=== PATIENT | female | born 1995 | race Caucasian/White ===

== ENCOUNTER 2023-02-08 14:18 | Emergency (ER) | payer BC, SELFPAY ==
[2023-02-08 14:56] VITALS: BP 137/68; PULSE 77; RESP 20; TEMP 36.8; O2SAT 100; BMI 27.4
[2023-02-08 16:27] VITALS: BP 132/94; PULSE 73
--- NOTE | 2023-02-08 16:31 | ED.NURSE ---
Pt wanted to have her BP checked. stated she did not want to keep waiting. Stated she just wanted to know if there was something in there (retained tampon) or if she was going to be admitted. Explained to pt that there was not rooms available at this time and that she was not appropriate to be seen in a hallway bed. Pt stated she no longer wants to wait and signed a refusal
== END 2023-02-08 16:40 | disposition home or self-care (01) ==
LOC: ED 16:35
DX: Z53.21 Procedure and treatment not carried out due to patient leaving prior to being seen by health care provider (principal)

== ENCOUNTER 2025-06-11 17:27 | Emergency (ER) | payer BC, SELFPAY ==
--- OUTSIDE RECORDS SUMMARY | 2025-05-10 19:20 | XMS_ITS | Encounter Summary ---
Author Organization [facility] Address [address], [place] [address] Care Team Providers Care Medical Translator Name Role Phone Hayley Soto MD Primary Care Provider [phone] Reason for Visit * Reason Comments Suture/Staple Removal Encounter Details Date Type Department Care Team ([facility] st Contact Info) Description 05/10/2025 7:20 PM CDT Office Visit [place] [facility] [facility] [address] [place] [address] Pipo Aparicio, PULP HOUSE SUPERVISOR, CIGARETTE STAMPER [address] [place] [address] Encounter for staple removal; Visit for wound check Social History Tobacco Use Types Packs/Day Years Used Date Smoking Tobacco: Former Cigarettes 1 12.7 0 11/22/2006 - 08/22/2019 Smokeless Tobacco: Never Comments:Smoking History Pac ks/day: Alcohol Use Standard Drinks/Week Comments Not Currently 3 (1 standard drink = 0.6 oz pur e alcohol) SOCIAL PHQ-2 Answer Date Recorded PHQ-2 Score 2 07/20/2023 Depression Answer Date Recor ded Last EPDS Total Score 0 12/25/2024 Last EPDS Self Harm Result Not on file 12/25 Comments No Sex and Gender Information Value Date Recorded Sex Assigned at Not on file Legal Sex Female 12:46 AM CDT Gender Identity Not on file Sexual Orientation Not on file Occupation Industry Job Start Date Job End Date [employer] Claims Not on file Not on file Not on file documented as of this encounter Last Filed Vital Signs Vital Sign Reading Time Taken Comments Blood Pressure 118/80 05/10/2025 7:00 PM CDT Pulse 71 05/10/2025 7:00 PM CDT Temperature - - Respiratory Rate 18 05/10/2025 7:00 PM CDT Oxygen Saturation 100% 05/10/2025 7:00 PM CDT Inhaled Oxygen Concentration - - Weight - - Height - - Body Mass Index - - documented in this encounter Patient Instructions * Attachments The following attachments cannot be sent through Care Everywhere. * Stitches and Amy Removal: General Info (Afghan) * IBS (Irritable Bowel Syndrome) Diet (Afghan) documented in this encounter Progress Notes * Pipo Aparicio, PULP HOUSE SUPERVISOR, CIGARETTE STAMPER - 05/10/2025 7:20 PM CDT [facility] Patient: Tori Poole Date of : 1995 (30 y.o.) Subjective Chief Complaint: Chief Complaint Patient presents with Suture/Staple Removal History of Present Illness: Tori Poole is a 30 y.o.female presents for evaluation of staple removal. Had amy placed 8 days ago while in [place]. Needs to have sutures removal. Feels that the wound has healed well. No signs of infection. No other concerns or complaints. Past Medical History: Patient Active Problem List Diagnosis History of anxiety Family history of other congenital malformations, deformations and chromosomal abnormalities Iron deficiency anemia due to chronic blood loss Menorrhagia with regular cycle Irregular menstruation, unspecified Adverse Drug Reactions: Patient has no known allergies. Medications: clindamycin and tretinoin Family History: Family History Problem Relation Name Age of Onset Osteoarthritis Father Diabetes Father Diabetes Mother Thyroid Disorder Mother Other (pre diabetes) Mother Fibromyalgia Sister Other (connective tissue) Sister Thyroid Disorder Maternal Aunt 4 Anesthesia Reaction Negative Family History Bleeding Disorder Negative Family History Social History: Social History Tobacco Use Smoking status: Former Current packs/day: 0.00 Average packs/day: 1 pack/day for 12.7 years (12.7 ttl pk-yrs) Types: Cigarettes Start date: 11/22/2006 Quit date: 08/22/2019 Years since quittin.7 Smokeless tobacco: Never Tobacco comments: Smoking History Packs/day: Vaping Use Vaping status: Never Used Substance Use Topics Alcohol use: Not Currently Alcohol/week: 3.0 standard drinks of alcohol Types: 3 Standard drinks or equivalent per week Comment: SOCIAL Drug use: No Review of Systems: All systems negative unless noted in HPI Objective Physical Exam: Vital Signs: BP 118/80 (BP Location: Right Arm, BP Cuff Size: Regular - Long) Pulse 71 Resp 18 LMP 01/21/2024 (Approximate) Comment: FEBRUARY 2024 SpO2 100% General: Alert,No obviousdiscomfort, well kept HENT: Normal voice, No lymphadenopathy Eyes: The pupils are equal, No scleral icterus Neck: Normal range of motion CV: Normal Pulses Resp: Non-labored, No cough MS: Normal muscular tone, moves all extremities Skin: 2 amy (s) placed over the top of left scalp just off of midline. No sign of wound dehiscence or infection. Neuro: Speech is normal and fluent Psych: Awake. Alert. Normal affect. Appropriate interactions. Good eye contact Procedure: Suture/staple removal. 2 amy (s) were removed without difficulty. Patient tolerated procedure well. Postprocedure wound evaluation shows no signs of dehiscence. Assessment Tori Poole is a 30 y.o. female presents for evaluation suture/staple removal. Wound appeared to be healed well. No sign of dehiscence or secondary infection. Sutures removed without incident and wound care protocols were discussed. Patient appears to be safe and appropriate for outpatient follow-up and is discharged home. Impression: 1. Encounter for staple removal 2. Visit for wound check Plan amy (s) were removed without problem. Avoid significant sun exposure for 6 to 12 months to reduce scarring. Monitor for infection such as fever, chills, redness, pus, discharge. Avoid heavy stress on skin that was repaired, as full strength takes several weeks to achieve.The patient was discharged ambulatory and in stable condition. Return to clinic if questions develop. Patient Discharge Medications & Instructions: Medications Prescribed this Visit None Discharge Instructions None Discharge References/Attachments Stitches and Amy Removal: General Info (Afghan) IBS (Irritable Bowel Syndrome) Diet (Afghan) Pipo Aparicio APRN, LUIS documented in this encounter Nursing Notes * Rodolfo Fuentes LPN - 05/10/2025 7:20 PM CDT Tori Poole is a 30 y.o.female presents to the Urgent Care for No chief complaint on file. . Date sutures were placed: 05/02/25 [facility]. Facility where suturing was performed: [place] of [place]. Location of Sutures: scalp Wound Appearance: Well healed without signs of inflammation or infection. documented in this encounter Plan of Treatment Upcoming Encounters Date Type Department Care Team ([facility]) Description 07/03/2025 1:30 PM CDT Appointment [place] [address] [facility] [address] [place] [address] Lizzy Ruvalcaba MD [address] [place], [place] [address] documented as of this encounter Visit Diagnoses Diagnosis Encounter for staple removal Encounter for removal of sutures Visit for wound check Encounter for other specified aftercare documented in this encounter Care Teams Medical Translator Relationship Specialty Start Date End Date Hayley Soto MD [address] [place], [place] [id number] PCP - General 07/23/16 documented as of this encounter
--- OUTSIDE RECORDS SUMMARY | 2025-06-11 17:30 | XMS_ITS | Encounter Summary ---
Author Organization [facility] Address [address] [place] [id number] Care Team Providers Care Silk Worker Name Role Phone Sisi Monge DO Primary Care Provider Unavailable Encounter Details Date Type Department Care Team (Late st Contact Info) Description 04/29/2021 Orders Only [facility] [address] [place] [address] Sisi Monge DO Pre-operative laboratory examination (Primary Dx) Social History Tobacco Use Types Packs/Day Years Used Date Smoking Tobacco: Former Cigarettes 1 - 09/01/2019 Smokeless Tobacco: Never Alcohol Use Standard Drinks/Week Comments Not Currently 0 (1 standard drink = 0.6 oz pur e alcohol) occ 1drink/week Comments Yes Sex and Gender Information Value Date Recorded Sex Assigned at Not on file Legal Sex Female 4:54 AM TOWEL WEAVER Gender Identity Not on file Sexual Orientation Not on file COVID-19 Exposure Response Date Recorded In the last month, have you been in contact with someone who was confirmed or suspected to have Coronavirus / COVID-19? No / Unsure 05/01/2021 6:58 AM CDT documented as of this encounter Plan of Treatment Not on file documented as of this encounter Results * ABO/Rh type and screen (05/01/2021 7:15 AM CDT) ABO O 05/01/2021 7:57 AM CDT [facility] RH(D) Pos [facility] Antibody Screen Neg 05/01/2021 7:57 AM CDT [facility] Test Valid Only At [facility] 05/01/2021 7:24 AM CDT [facility] Specimen Expires 05/04/2021 05/01/2021 7:24 AM CDT [facility] Blood 05/01/2021 7:15 AM CDT 05/01/2021 7:19 AM CDT us Sisi Monge DO LAB - BLOOD BANK TEST O RDER Edited Result - Final [facility] [address] [place], [place] [address] [phone] * Treponema Abs w Reflex to RPR and Titer (05/01/2021 7:04 AM CDT) Treponema Antibodies Nonreactive NR^Nonrea ctive 05/01/2021 4:13 PM CDT [facility] Comment: Methodology Change: Test performed on the [place] Liaison XL by Treponema pallidum Total Antibodies Assay as of 02.06.2020. Blood 05/01/2021 7:04 AM CDT 05/01/2021 7:18 AM CDT us Sisi Monge DO LAB - BLOOD ORDERABLES Final Result [facility] [address] [place] [address] * (ABNORMAL) Hemoglobin (05/01/2021 7:04 AM CDT) Hemoglobin 10.8(L) 11.7 - 15.7 g/dL 05/01/2021 7:39 AM CDT [facility] Blood 05/01/2021 7:04 AM CDT 05/01/2021 7:18 AM CDT us Sisi Monge DO LAB - BLOOD ORDERABLES Final Result [facility] [address] [place] [address], [facility] [phone] documented in this encounter Visit Diagnoses Diagnosis Pre-operative laboratory examination- Primary Pre-procedural laboratory examination documented in this encounter Care Teams Silk Worker Relationship Specialty Start Date End Date Sisi Monge DO PCP - General provisioning analyst 02/21/21 documented as of this encounter
--- OUTSIDE RECORDS SUMMARY | 2025-06-11 17:30 | XMS_ITS | Clinical Summary ---
Author Organization [facility] Address [address] [place] [address] Care Team Providers Care Hr Generalist Name Role Phone Sisi Monge DO Primary Care Provider Unavailable Allergies No known active allergies Medications acetaminophen (TYLENOL) 325 MG tabletIndicatio ns:S/P Take 3 tablets (975 mg) by mouth every 6 hours 1 Active bisacodyl (DULCOLAX) 10 MG suppositoryIndi cations:S/P Place 1 suppository (10 mg) rectally daily as needed for constipation 1 Active ferrous sulfate (FEROSUL) 325 (65 Fe) MG tabletIndicatio ns:S/P Take 1 tablet (325 mg) by mouth daily 60 tablet 1 Active hydrocortisone 2.5 % creamIndication s:S/P Place rectally 3 times daily as needed (hemorrhoids) 1 Active ibuprofen (ADVIL/MOTRIN) 800 MG tabletIndicatio ns:S/P Take 1 tablet (800 mg) by mouth every 6 hours 60 tablet 1 Active lanolin ointmentIndicat ions:S/P Apply topically every hour as needed for dry skin (soreness) 1 Active oxyCODONE (ROXICODONE) 5 MG tabletIndicatio ns:S/P Take 1 tablet (5 mg) by mouth every 4 hours as needed for moderate to severe pain 6 tablet 1 Active senna-docusate (SENOKOT-S/MICHELLE COLACE) 8.6-50 MG tabletIndicatio ns:S/P Take 1 tablet by mouth 2 times daily 60 tablet 1 Active dicyclomine (BENTYL) 20 MG tablet Take 1 tablet (20 mg) by mouth 4 times daily as needed (abdominal pain) 20 tablet 3 Active cyclobenzaprine (FLEXERIL) 5 MG tablet Take 2 tablets (10 mg) by mouth 3 times daily as needed for muscle spasms. 14 tablet 5 Active Active Problems Problem Noted Date Diagnosed Date S/P 05/02/2021 Encounter for triage in patient 021 Family History Medical History Relation Comments Diabetes Father Hyperlipidemia Father Hypertension Father Diabetes Mother Relation Status Comments Father Mother Social History Tobacco Use Types Packs/Day Years Used Date Smoking Tobacco: Former Cigarettes 1 - 09/01/2019 Smokeless Tobacco: Never Alcohol Use Standard Drinks/Week Comments Not Currently 0 (1 standard drink = 0.6 oz pur e alcohol) occ 1drink/week [place] Depression Scale Answer Date Recorded [place] Depression Score 2 05/04/2021 Last EPDS Self Harm Result Not on file 05/04 Adolescent Education Answer Date Record ed Getting School Help Needed Not on file 08/20 Comments No Sex and Gender Information Value Date Recorded Sex Assigned at Not on file Legal Sex Female 4:54 AM E COMMERCE ANALYST Gender Identity Not on file Sexual Orientation Not on file Last Filed Vital Signs Vital Sign Reading Time Taken Comments Blood Pressure 129/83 01/28/2025 7:19 AM CDT Pulse 74 01/28/2025 7:19 AM CDT Temperature 36.1 C (96.9 F) 01/28/2025 7:19 AM CDT Respiratory Rate 18 01/28/2025 7:19 AM CDT Oxygen Saturation 100% 01/28/2025 7:19 AM CDT Inhaled Oxygen Concentration - - Weight 70.2 kg (154 lb 12.2 oz) 01/28/2025 7:19 AM CDT Height 165.7 cm (5' 5.25) 01/28/2025 7:19 AM CD T Body Mass Index 25.56 01/28/2025 7:19 AM CDT Plan of Treatment Health Maintenance Due Date Last Done Comments ADVANCE CARE PLANNING 1995 ANNUAL REVIEW OF HM ORDERS 1995 COVID-19 VACCINE ( - season) 2024 PHQ-2 (once per calendar year) 2024 YEARLY PREVENTIVE VISIT 01/31/2025 02/01/2024, 12/16 INFLUENZA VACCINE (#1) 2025 09/27/2020 HPV TEST 02/01/2029 02/02/2024 PAP 02/01/2029 02/02/2024, 08/20/2016 DTAP/TDAP/TD VACCINE (9 - Td or Tdap) 02/05/2031 02/05/2021, 06/26/2005, 06/26/2005, Additional history exists ZOSTER VACCINE (1 of 2) 2043 HEPATITIS B VACCINE Completed 01/13/2006, 01/13/2006, 07/30/2005, Additional history exists HPV VACCINE Completed 04/05/2007, 09/23, 12/21/2005 MENINGITIS VACCINE Completed 12/16/2009 HIV SCREENING Completed 09/27/2020, 04/2020, 08/20/2016 HEPATITIS C SCREENING Completed 02/05/2021 PNEUMOCOCCAL VACCINE: PEDIATRICS (0 to 5 YEARS) AND AT-RISK PATIENTS (6 to 49 YEARS) Aged Out No longer eligible based on patient's age to complete this topic Procedures Procedure Name Priority Date/Time Associated Diagnosis Comments GYNECOLOGIC CYTOLOGY Routine 02/02/2024 8:12 AM CDT Encounter for gynecological examination (general) (routine) without abnormal findings HPV HIGH RISK TYPES DNA CERVICAL Routine 02/02/2024 8:12 AM CDT Encounter for gynecological examination (general) (routine) without abnormal findings HIV ANTIGEN ANTIBODY COMBO Routine 09/27/2020 from Last 3 Months or Most Recently Relevant to Health Maintenance Results * Gynecologic Cytology (PAP) (02/02/2024 8:12 AM CDT) Interpretation Negative for Intraepithelial Lesion or Malignancy (NILM) 02/04/2024 3:22 PM CDT [facility] at 1522 CDT Comment Papanicolaou Test Limitations: Cervical cytology is a screening test with limited sensitivity, and regular screening is critical for cancer prevention. Pap tests are primarily effective for the diagnosis/prevent ion of squamous cell carcinoma, not adenocarcinoma or other cancers. 02/04/2024 3:22 PM CDT [facility] Specimen Adequacy Satisfactory for evaluation, endocervical/davey sformation zone component present 02/04/2024 3:22 PM CDT [facility] Clinical Information none 02/04/2024 3:22 PM CDT [facility] LMP/Menopause Date 01/16/2024 02/04/2024 3:22 PM CDT [facility] Reflex Testing Yes regardless of result 02/04/2024 3:22 PM CDT [facility] Previous Abnormal? No 02/04/2024 3:22 PM CDT [facility] Previous Abnormal Diagnosis 11/22/2020 02/04/2024 3:22 PM CDT [facility] Performing Labs The technical component of this testing was completed at [facility] 02/04/2024 3:22 PM CDT [facility] Brushing CERVIX UTERI STRUCTURE / Unknown 02/02/2024 8:12 AM CDT 02/02/2024 1:40 PM CDT Delvin ROSARIO - RAUL REN Final Result [facility] [address] [facility], [address] [place] [phone], [facility] * (ABNORMAL) HPV High Risk Types DNA Cervical (02/02/2024 8:12 AM CDT) Other HR HPV Positive(A) Negative 02/08/2024 4:08 PM CDT [facility] HPV16 DNA Negative Negative 02/08/2024 4:08 PM CDT [facility] HPV18 DNA Negative Negative 02/08/2024 4:08 PM CDT [facility] FINAL DIAGNOSIS This patient's sample is positive for other HR HPV DNA (types 31, 33, 35, 39, 45, 51, 52, 56, 58, 59, 66 or 68), not HPV 16 or HPV 18 DNA. This result requires clinical correlation with concurrent cytology findings. This test was developed and its performance characteristics determined by the [facility], [facility]. It has not been cleared or approved by the FDA. The laboratory is regulated under CLIA as qualified to perform high-complexity testing. This test is used for clinical purposes. It should not be regarded as investigational or for research. METHODOLOGY: The [employer] 4800 system uses automated extraction, simultaneous amplification of HPV (L1 region) and beta-globin, followed by real time detection of fluorescent labeled HPV and beta globin using specific oligonucleotide probes. The test specifically identifies types HPV 16 DNA and HPV 18 DNA while concurrently detecting the rest of the high risk types (31, 33, 35, 39, 45, 51, 52, 56, 58, 59, 66 or 68). COMMENTS: This test is not intended for use as a screening device for woman under age 30 with normal cervical cytology. Results should be correlated with cytologic and histologic findings. Close clinical followup is recommended. 02/08/2024 4:08 PM CDT [facility] Brushing CERVIX UTERI STRUCTURE / Unknown Non-blood Collection / Unknown 02/02/2024 8:12 AM CDT 02/07/2024 8:10 AM CDT Delvin Callaway MD LAB - BLOOD ORDERABLES Final Result [facility] [address] [facility], [address] [place] [phone], [facility] * HIV Antigen Antibody Combo (09/27/2020) HIV Antigen Antibody Combo Negative Blood us Patient Reported LAB - BLOOD ORDERABLES Final Re sult from Last 3 Months or Most Recently Relevant to Health Maintenance Insurance BCBS OUT OF STATE BCBS OUT OF STATE Advance Directives For more information, please contact: [phone] * Full Code (Latest Code Status on File) Date Activated Date Inactivated Comments 05/03/2021 9:26 AM 05/05/2021 5:46 PM Question Answer Comments Code status determined by: Discussion with patie nt/ legal decision maker * Full Code Date Activated Date Inactivated Comments 05/03/2021 7:20 AM 05/03/2021 9:26 AM All basic an d advanced life-sustaining interventions are performed as appropriate Question Answer Comments Code status determined by: Discussion with patie nt/ legal decision maker Care Teams Hr Generalist Relationship Specialty Start Date End Date Sisi Monge DO PCP - General mattress and boxsprings supervisor 02/21/21
--- OUTSIDE RECORDS SUMMARY | 2025-06-11 17:30 | XMS_ITS | Clinical Summary ---
Author Organization [facility] Address [address] [place] [address] Care Team Providers Care Wood Carving Machine Operator Name Role Phone Hayley Soto MD Primary Care Provider + [phone] Source Comments You are receiving this document as you are listed as the primary care provider,follow-up provider, or the patient has been referred to you for consultation.This is in compliance with the Medicare and[facility] EHR Incentive Program,which states Providers who transition their patient to another setting of careor provider of care or refers their patient to another provider of care shouldprovide summary care record for each transition of care or referral. [employer] Allergies No known active allergies Medications clindamycin (CLEOCIN T) 1 % lotion Apply topically daily. 60 mL 11 4 Active Additional Information Patient not taking.Reported on 05/10/2025 tretinoin (RETIN-A) 0.05 % cream Apply topically every evening. 45 g 11 4 Active Additional Information Patient not taking.Reported on 05/10/2025 Active Problems Problem Noted Date Diagnosed Date Iron deficiency anemia due to chronic blood loss 10/05/2023 Menorrhagia with regular cycle 10/05/2023 History of anxiety 09/29/2020 Family history of other vipul enital malformations, deformations and chromosomal abnormalities 09/29/2020 Irregular menstruation, unspecified Resolved Problems Problem Noted Date Diagnosed Date Resolved Date S/P 05/02/2021 11/25/2021 Encounter for triage in patient 02/03/2021 11/25/2021 Supervision of high risk pre gnancy in third trimester 11/08/2020 11/25/2021 History of miscarriage 09/29/202011/25 Previous delivery, antepartum condition or complication 09/29/2020 11/25/2021 Anxiety state 05/14/2010 10/22/2017 Overview (07/14/2017): Anxiety NOS Asthma 04/07/2010 06/14/2017 Overview (07/14/2017): Asthma NOS Encounters Date Type Department Care Team Description 05/10/2025 7:20 PM CDT Office Visit [facility] [address] [place] [address] Pipo Aparicio, ELECTRICAL/INSTRUMENT TECHNICIAN, BLOOD TYPER Encounter for staple removal; Visit for wound check from Last 3 Months Immunizations Immunization Administration Dates Next Due 4vHPV (Gardasil) 04/05/2007,10/20/2006, 6 DTP 10/28/1994, 3,1993,1992 DTaP 06/26/2005,02/14/1998 HepB Ped/Adol (0-18 yrs) 01/13/2006,06/2005,06/26/2005,1992 HepB, Unspecified Formulation 1993, 993 Hib, Unspecified Formulation 07/22/1994,08/14/19 93 Influenza IIV4 (Quadrivalent ) 0.5mL (82194) 09/27/2020 MCV4 (Menactra) 12/16/2009 MMR 06/26/2005,07/22/1994 Polio, Unspecified Formulation 8,10/28/1994,1993,1992 Tdap 02/05/2021,06/26/2005 Family History Medical History Relation Name Comments Diabetes Father Osteoarthritis Father Diabetes Mother Thyroid Disorder Mother pre diabetes Mother Thyroid Disorder Maternal Aunt 4 Fibromyalgia Sister 1 connective tissue Sister 2 Anesthesia Reaction Negative Family History Bleeding Disorder Negative Family History Relation Name Status Comments Father Mother Daughter 1 peighton Alive Daughter 2 manjeet Alive Maternal Aunt Paternal Grandfather (Age 60) Paternal Grandmother (Age 60) Sister 1 Sister 2 Social History Tobacco Use Types Packs/Day Years Used Date Smoking Tobacco: Former Cigarettes 1 12.7 0 11/22/2006 - 08/22/2019 Smokeless Tobacco: Never Tobacco Cessation:Counseling Given: Not Answered Comments:Smoking History Packs/day: Alcohol Use Standard Drinks/Week Comments Not Currently [...] file Not on file Not on file Last Filed Vital Signs Vital Sign Reading Time Taken Comments Blood Pressure 118/80 05/10/2025 7:00 PM CDT Pulse 71 05/10/2025 7:00 PM CDT Temperature 37.1 C (98.7 F) 08/12/2023 10:10 AM CDT Respiratory Rate 18 05/10/2025 7:00 PM CDT Oxygen Saturation 100% 05/10/2025 7:0 0 PM CDT Inhaled Oxygen Concentration - - Weight 69.9 kg (154 lb 1.6 oz) 05/04/20 24 11:39 AM CDT Height 157.5 cm (5' 2) 11/25/2021 7:18 AM WATER RESOURCE ENGINEERING SPECIALIST pt reported Body Mass Index 28.19 11/25/2021 7:18 AM WATER RESOURCE ENGINEERING SPECIALIST Plan of Treatment Upcoming Encounters Date Type Department Care Team (Late st Contact Info) Description 07/03/2025 1:30 PM CDT Appointment [id number] [address] [place] [address] Lizzy Ruvalcaba MD [address] [place] [address] Health Maintenance Due Date Last Done Comments Adult Preventive Visit 12/16/2020 12/16/2018 COVID-19 Vaccine ( season) 2024 Influenza Vaccine (#1) 2025 09/27/2020 Cervical Cancer Screening 02/02/20272023 (Completed), 12/16/2018, 04/23/2011, Additional history exists DTaP/Tdap/Td Vaccine (9 - Tdap) 02/05/2031 02/05/2021, 06/26/2005, 06/26/2005, Additional history exists Zoster/Shingles Vaccine (1 of 2) 2043 Hib Vaccine Completed 07/22/1994, 1993 IPV (Polio) Vaccine Completed 02/14/1998, 10/28/1994, 1993, Additional history exists HepB Vaccine Completed 01/13/2006, 06/2005, 06/26/2005, Additional history exists HPV Vaccine Completed 04/05/2007, 09/23, 12/21/2005 MCV4 Vaccine Completed 12/16/2009 HIV Screening (Preventive Services) Completed 09/27/2020, 01/12/2019, 08/20/2016, Additional history exists Hep C Screening (Preventive Services) Completed 02/05/2021, 01/12/2019 HepA Vaccine Aged Out No longer eligi ble based on patient's age to complete this topic Meningococcal B Vaccine Aged Out No l onger eligible based on patient's age to complete this topic Pneumococcal Vaccine Aged Out No long er eligible based on patient's age to complete this topic Procedures Procedure Name Priority Date/Time Associated Diagnosis Comments HEPATITIS C ANTIBODY, WITH REFLEX (ANTI-HCV) Routine 02/05/2021 8:35 AM CDT Previous section complicating HIV 1/2 AG/AB 4TH GEN Routine 09/27/2020 11:49 AM WATER RESOURCE ENGINEERING SPECIALIST Screening examination for venereal disease ANATOMICAL PATH LIQUID BASED Routine 12/16/2018 1:48 PM WATER RESOURCE ENGINEERING SPECIALIST from Last 3 Months or Most Recently Relevant to Health Maintenance Results * Hepatitis C Antibody, with Reflex (02/05/2021 8:35 AM CDT) Hepatitis C Antibody Negative (Non Reactive) Negative (Non Reactive) 02/05/2021 1:12 PM CDT [facility] Comment:Antibodies to HCV no t detected. Does not exclude the possiblity of exposure to HCV. Blood Venipuncture / Unknown 02/05/2021 8:35 AM CDT 02/05/2021 8:35 AM CDT us Sisi Dennys Monge DO LAB_1 Final Resu lt Performing Organization Address City/[facility] Co de Phone Number [facility] [address] * HIV 1/2 Ag/Ab 4th Generation (09/27/2020 11:49 AM WATER RESOURCE ENGINEERING SPECIALIST) Pathologist [facility] [place] HIV 1/2 Antigen/Antib whitley (4th generation) Negative (Non Reactive) Negative (Non Reactive) 09/27/2020 3:57 PM WATER RESOURCE ENGINEERING SPECIALIST [facility] Comment:HIV-1 p24 Antigen an d HIV-1/HIV-2 Antibody not detected Blood Venipuncture / Unknown 09/27/2020 11:49 AM WATER RESOURCE ENGINEERING SPECIALIST 09/27/2020 11:49 AM WATER RESOURCE ENGINEERING SPECIALIST us Kasie Noyola Sean ELECTRICAL/INSTRUMENT TECHNICIAN, BLOOD TYPER LAB_1 Final R esult Performing Organization Address City/[facility] Co de Phone Number [facility] [address] * Pap Smear (12/16/2018 1:48 PM WATER RESOURCE ENGINEERING SPECIALIST) 12/16/2018 1:48 PM WATER RESOURCE ENGINEERING SPECIALIST Narrative PN SOFT - 12/29/2018 12:36 PM WATER RESOURCE ENGINEERING SPECIALIST FINAL GYNECOLOGICAL CYTOLOGY REPORT Pathology #: [id number] Date Obtained: 12/16/2018 Date Received: 12/19/2018 INTERPRETATION/RESULTS: Negative for Intraepithelial Lesion or Malignancy. SPECIMEN ADEQUACY: Satisfactory for Evaluation. Endocervical cells/transformation zone component present. Verified on 12/29/2018 by BRAD ISAACS MD (electronic signature) CLINICAL NOTES: Abnormal bleeding: No, LMP: 12/12/2018, Menstrual status: None Apply, Current form of therapy: None apply LIQUID BASED PAP SMEAR SPECIMEN TYPE: ROUTINE CERVICAL PAP TEST PLEASE NOTE: The pap smear is a screening test designed to aid in the detection of cervical cancer and its precursor lesions. It is not a diagnostic procedure and should not be used as the sole means of detecting cervical cancer. Both false-positive and false-negative reports may occur. Performed at [facility] [place] [facility], [facility] [place] [address] Hayley Soto MD LAB_1 Final Result PN SOFT [facility] [place], [place] [id number] from Last 3 Months or Most Recently Relevant to Health Maintenance Insurance [facility] OUT OF STATE [facility] OUT OF STATE [place] [id number] Care Teams Wood Carving Machine Operator Relationship Specialty Start Date End Date Hayley Soto MD [address] [facility] [place] [id number] PCP - General 07/23/16
--- OUTSIDE RECORDS SUMMARY | 2025-06-11 17:30 | XMS_ITS | Encounter Summary ---
Author Organization [facility] Address [address] [place] [address] Care Team Providers Care Claims Examiner Name Role Phone Hayley Soto MD Primary Care Provider [phone] Sisi Monge DO Primary Care Provider Unavailable Encounter Details Date Type Department Care Team (Late st Contact Info) Description 07/02/2020 External Order Results [facility] [address] [place] [address] Outside, Provider Social History Tobacco Use Types Packs/Day Years Used Date Smoking Tobacco: Former Cigarettes 1 - 09/01/2019 Smokeless Tobacco: Never Alcohol Use Standard Drinks/Week Comments Yes 0 (1 standard drink = 0.6 oz pur e alcohol) occ 1drink/week Comments No Sex and Gender Information Value Date Recorded Sex Assigned at Not on file Legal Sex Female 4:54 AM LAPEL BASTER Gender Identity Not on file Sexual Orientation Not on file COVID-19 Exposure Response Date Recorded In the last month, have you been in contact with someone who was confirmed or suspected to have Coronavirus / COVID-19? No / Unsure 07/03/2020 5:31 PM CDT documented as of this encounter Plan of Treatment Not on file documented as of this encounter Procedures Procedure Name Priority Date/Time Associated Diagnosis Comments COVID-19 VIRUS (CORONAVIRUS) BY PCR (EXTERNAL RESULT) Routine 07/02/2020 8:23 AM CDT documented in this encounter Results * COVID-19 Virus (Coronavirus) by PCR (External Result) (07/02/2020 8:23 AM CDT) COVID-19 Virus by PCR (External Result) Not Detected Not Detected [facility] 07/02/2020 8:23 AM CDT Narrative KARIME PFT - 07/03/2020 9:34 AM CDT Verified by Letty Ellis on 07/03/2020. us Patient Reported LABORATORY Edited Result - Final KARIME PFT [facility] [address] [phone] documented in this encounter Visit Diagnoses Not on filedocumented in this encounter Care Teams Claims Examiner Relationship Specialty Start Date End Date Hayley Soto MD PCP - General Family Practice 10/22/17 02/20/21 Sisi Monge DO PCP - General warehouser 02/21/21 documented as of this encounter
--- OUTSIDE RECORDS SUMMARY | 2025-06-11 17:30 | XMS_ITS | Data Portability ---
Author Organization [facility] INSPECTOR OPTICAL INSTRUMENT, [id number] Address [address] [place] [phone] Assessment No assessment recorded. Plan of Treatment Reminders Order Date Submit Date Provider Last Modified By Organization Details Last Modified Time Details Appointments None recorded. Lab None recorded. Referral None recorded. Procedures None recorded. Surgeries total laparoscopi c hysterectom y, robotic assisted (SURG) 2023 024 Formerly [facility] [place], [address] [place] [address] , [address], [place], [address], 4 11:09:33 Imaging None recorded. Medication Orders None recorded. Patient TargetsNo targets recorded. Patient InstructionsNo instructions recorded. Reason for Referral None Reported. Results Created Date Observation Date Name Description Value Unit Range Abnormal Flag Note LastModifiedBy Organization Detail LastModifiedTime 02/02/20 24 02/02/2024 GYNEC OLOGI C CYTOL OGY (PAP SMEAR ) gynecologic cytology SEE RESULT S BELOW SPECI MEN SOURC E [place] ing Cervi x BKR LAB AP GYROSCOPE TECHNICIAN INTER PRETA TION: Negat daylin for Intra epith elial Lesio n or Bettina norris (NILM ) Elect aleta moffett randal d by Remy Galarza CT (ASCP ) on 2023 at 3:22 PM Path repor [email or web address] ments Imp Spec: Papan icola ou Test Limit ation s: Cervi jeana cytol ogy is a scree fauzia test with limit ed sensi tivit y, and regul ar scree fauzia is criti jeana for cance r preve ntion . Pap tests are prima rily effec tive for the diagn osis/ preve ntion of squam ous cell carci noma, not adeno carci noma or other cance rs. BKR LAB AP GYROSCOPE TECHNICIAN ADEQU ACY: Satis facto ry for evalu ation , endoc ervic al/tr ansfo rmati on zone compo nent prese nt Path repor t.rel evant Hx Spec: none BKR LAB AP LMP: 2023 BKR LAB AP HPV REFLE X: Yes regar dless of resul t BKR LAB AP PREVI OUS ABNOR MAL: No BKR LAB AP PREVI OUS ABNL DX: 021 Path repor [email or web address].com ments Imp Spec: The techn ical compo nent of this testi ng was compl eted at [facility] [facility] Not Available [address], [place], [address], 02/08/2024 17:10:35 02/02/20 24 02/02/2024 HPV HIGH RISK TYPES DNA CERVI JEANA other HR HPV Positi ve negati ve abnormal Not Available [address], [place], [address], 02/08/2024 17:10:41 02/02/20 24 02/02/2024 HPV HIGH RISK TYPES DNA CERVI JEANA HPV16 DNA Negati ve negati ve Not Available [address], [place], [address], 02/08/2024 17:10:41 02/02/20 24 02/02/2024 HPV HIGH RISK TYPES DNA CERVI JEANA HPV18 DNA Negati ve negati ve Not Available [address], [place], [address], 02/08/2024 17:10:41 02/02/20 24 02/02/2024 HPV HIGH RISK TYPES DNA CERVI JEANA final diagnosis See note below This patie nt's sampl e is posit daylin for other HR HPV DNA (type s 31, 33, 35, 39, 45, 51, 52, 56, 58, 59, 66 or 68), not HPV 16 or HPV 18 DNA. This resul t requi res clini jeana corre latio n with concu rrent cytol ogy findi ngs. This test was devel oped and its perfo rmanc e glo cteri stics deter mined by [facility] [place] [facility] . It has not been clear ed or appro jose by the FDA. The labor atory is regul ated under CLIA as quali fied to perfo rm high- compl exity testi ng. This test is used for clini jeana purpo ses. It shoul d not be regar ded as inves tigat ional or for resea rch. METHO DOLOG Y: The [employer] 4800 syste m uses autom ated extra ction , simul taneo us ampli ficat ion of HPV (L1 regio n) and beta- globi n, follo wed by real time detec tion of fluor escen t label ed HPV and beta globi n using speci fic oligo nucle otide probe s. The test speci fical ly ident ifies types HPV 16 DNA and HPV 18 DNA while concu rrent ly detec ting the rest of the high risk types (31, 33, 35, 39, 45, 51, 52, 56, 58, 59, 66 or 68). COMME NTS: This test is not inten ded for use as a scree fauzia devic e for woman under age 30 with danielle l cervi jeana cytol ogy. Resul ts shoul d be corre lated with cytol ogic and histo logic findi ngs. Close clini jeana follo wup is recom josephine d. Not Available [address], [place], [address], 02/08/2024 17:10:41 Result Notes None recorded. Problems Name Problem SNOMED Code Status Onset Date Resolution Date Notes Provider Name and Address Organization Details Recorded Time [facility] 322514141 Active 024 Hussein Griffith (TERMED) null, [place] [facility] [employer] INSTR[employer] 02/01/2024 17:36:20 Acne 79570915 Active 025 Rafaela Kwan null, [facility] 03/06/2025 17:35:48 Problem Notes None recorded. Procedures Surgical History Date Name Laterality Status Provider Name and Address Organization Details Recorded Time 02/22/20 24 TOTAL LAPAROSCOPIC HYSTERECTOMY, ROBOTIC ASSISTED (SURG) completed Karol Wolff [facility] 02/23/2024 11:09:33 02/02/20 24 Date of Last Pap Smear completed Clarissa Buchanan [facility] 02/08/2024 17:34:13 05/02/20 21 Tubal Ligation completed Hussein Griffith (TERMED) [facility] 02/01/2024 17:30:02 05/02/20 21 Caesarean Section completed Hussein Nacho (TERMED) [facility] 02/01/2024 17:30:02 04/13/20 13 Caesarean Section completed Hussein Nacho (TERMED) [facility] 02/01/2024 17:30:02 02/24/20 05 Tonsillectomy completed Hussein Nacho (TERMED) [facility] 02/01/2024 17:30:02 02/10/20 05 Tonsillectomy completed Hussein Nacho (TERMED) [facility] 02/01/2024 17:30:02 Imaging Results None recorded. Procedure Notes None recorded. Medical Equipment None Reported. Allergies No known drug allergies Medications Name Sig Start Date Stop Date Status Note LastModified by Organization Details LastModified Time ibuprofen 800 mg tablet TAKE 1 TABLET BY MOUTH EVERY 8 HOURS IF NEEDED* 04/04 completed Not Available Not Available Not Available tretinoin 0.025 % topical cream Apply topically to the affected area(s) every evening.* 03/05 completed Not Available Not Available Not Available tretinoin 0.05 % topical cream Apply topically every evening.* active Not Available Not Available No t Available doxycycline monohydrate 100 mg capsule TAKE ONE CAPSULE BY MOUTH TWICE DAILY active Not Available Not Available No t Available oxycodone 5 mg tablet TAKE ONE TABLET BY MOUTH EVERY SIX HOURS NEEDED* 03/07 completed Not Available Not Available Not Available clindamycin 1 % lotion Apply topically daily.* active Not Available Not Available No t Available Vitals Date Recorded Body weight Body mass index (BMI) Body height Systolic And Diastolic Provider Name and Address Organization Details Last Updated DateTime 02/01/2024 57484.28 g 27.8 kg/m2 160.02 cm 112/78 mm[Hg] Hussein Griffith (TERMED) [facility] INSPECTOR [employer] INSTRUMENT 02/01/2024 17:40:11 Date Recorded Body height Body mass index (BMI) Body weight Systolic And Diastolic Provider Name and Address Organization Details Last Updated DateTime 03/06/2025 160.02 cm 26.9 kg/m2 32311.6 g 122/76 mm[Hg] Rafaela Kwan [facility] INSPECT[employer] INSTRUMENT 03/06/2025 17:35:31 Date Recorded Body height Body mass index (BMI) Body weight Systolic And Diastolic Provider Name and Address Organization Details Last Updated DateTime 03/07/2024 160.02 cm 27.3 kg/m2 35670.22 g 116/74 mm[Hg] Marie Castillo (TERMED) [facility] INSPECTOR [employer] INSTRUMENT 03/07/2024 17:25:58 Date Recorded Body height Body mass index (BMI) Body weight Systolic And Diastolic Provider Name and Address Organization Details Last Updated DateTime 04/04/2024 160.02 cm 27.4 kg/m2 31817.38 g 118/80 mm[Hg] Marie Castillo (TERMED) [facility] INSPECT[employer] INSTRUMENT 04/04/2024 17:22:24 Social History Question Answer Notes LastModified by Organizat ion Details LastModified Time Tobacco Smoking Status Former Smoker Hussein Griffith (TERMED) null, [facility] INSPECT[employer] INSTRUMENT 02/01/2024 17:29:59 Do You Have An Advance Directive? No Information not available 03/06/2025 What Is Your Level Of Caffeine Consumption? Occasional Information not available 03/06/2025 What Type Of Diet Are You Following? REGULAR Information not available 03/06/[address] [facility] [email or web address] Informat ion not available 02/01/2024 History Of Domestic Violence No Information no t available 02/01/2024 Have You Ever Been Or Currently Are A Victim Of Sexual Abuse? No Information not available 03/06/2025 Have You Ever Been Or Currently Are A Victim Of Physical Abuse? No Information not available 03/06/2025 What Is Your Relationship Status? [email or web address] Information not available 02/01/2024 Are You Sexually Active? Yes [email or web address] Information not available 02/01/2024 How Many Years Have You Smoked Tobacco? 10 Information not available 03/06/2025 Sex: Unknown Functional Status Question Answer Note LastModified by Organizat ion Details LastModified Time Do you use any illicit or recreational drugs? No [email or web address] Information not available 02/01/2024 What is your level of alcohol consumption? Occasional Information not available 02/01/2024 Are you currently employed? 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 Never used electronic cigarettes Information not available 03/06/2025 What is your exercise level? Heavy Information not available 03/06/2025 Mental Status None recorded. Family History Relationship Description Onset Age of this Age Resolved Age Notes LastModified by Organization Details LastModified Time Mother Diabetes mellitus [email or web address] Not available 2023 17:29:38 Father Hypertensive disorder Not available 2023 17:29:38 Father Diabetes mellitus [email or web address] Not available 2023 17:29:38 Medical History Condition Response ENT- Seasonal Allergies/Allergic Rhiniti s Y Gynecological History Statement/Question Response History of Endometriosis N History of Abnormal PAP Y History of Recurrent Ovarian Cysts N HPV Test Positive Date of Last Mammogram Total lifetime partners More than 5 Date of LMP 02/08/2024 Date of Last HPV Test 02/02/2024 Date of Last Diabetes Screening 07/27/20 23 11 History of Infertility N Sexually Active Y Age at Menarche: 9 Date of Last Colonoscopy History of Sexually Transmitted Infectio n N Y HPV Vaccine Complete Current Control Method Hysterectom y History of Fibroids N Date of Last Pap Smear 02/02/2024 History of PCOS N Date of Last Cholesterol Screening 07/27 Obstetrics History GPAL:G 3 P 0 0 0 2 Type Value Living 2 Total 3 Past Encounters Encounter ID Performer Location Encounter Start Date Encounter Closed Date Diagnosis/Indication Diagnosis SNOMED-CT Code Diagnosis ICD10 Code Diagnosis Note [id number] DONNIE CARNEY MD [id number]_MHI [facility] [address] [place] [address],[address] [id number] 02/01/2024 17:28:02 02/04/2024 15:10:51 Gynecologic examination 18185910 Z01.419 up to date on all screening tests Menorrhagia 975321273 N9 2.0 i reviewed her images of her ultrasound . she has a normal small sized uterus. she wants to do something definitive about this iron deficiency anemia and menorrhage . we discussed options for endometria l ablation or hysterecto my. she already has her permanent sterilizat ion so she is definitely not planning on any future children. we discussed that either option does not allow for future fertility. the concern for endometria l ablation is that this will most likely fail over time and not will require a subsequent procedure. she would really like to proceed with hysterecto my. we discussed how this is performed as an outpatient procedure with the i[employer]it[employer] robot. we would leave her ovaries in of course. she would not require HRT. we discussed the risks of bleeding, infection, bladder/sailaja wel/vascul ar injury. we discussed the postoperat daylin cares involved. she would like to schedule this in the near future [id number] MD WHITNEY [id number]_WES [facility] [address] [place] [address],[address] [id number] 03/07/2024 17:17:30 03/07/2024 17:57:14 Postoperative visit 768985943 Z48.89 doing well. reviewed path report. RTC 4 weeks [id number] DONNIE CARNEY MD [id number]_GPT [facility] [address] [place] [address],[address] [id number] 04/04/2024 17:15:56 04/04/2024 17:39:47 Postoperative visit 731507430 Z48.89 doing well. return to all normal activities [id number] DONNIE CARNEY MD [id number] T[address] [address] [place] [address],[facility] [address] [id number] 03/06/2025 17:31:22 03/06/2025 17:53:37 Gynecologic examination 12089132 Z01.419 up to date on all screens Health Concerns Section Related Observation LastModified by Organization Detai ls LastModified Time None Recorded Concern Status LastModified by Organization Details LastModified Time None Recorded Advance Directives Directive N: Payers Insurance Date Sequence Insurance Name Policy Number Policy Ac Covered Member ID Ac Member ID Guarantor Name 07/02/2020 1 *SELF PAY* Olive Poole 12/29/2023 1 [employer] [id number] Tori Garza [id number] Tori Poole Notes Date Note Type Note Provider Name and Address Organization Details Recorded Time 02/01/2024 text/html Annual Premenopa usal ([facility])Reported bypatient.Patient Relationship To Practice:former patient returning (last seen 2013) Current Medical History:active medical problems stable; no recent surgeries or hospitalizations Relevant Family History:no family history of breast cancer; no family history of ovarian cancer; no family history of uterine cancer; no family history of colon cancer; no family history of blood clots/DVT; great grandma of breast cancer Menstrual History:Frequency of Menses: monthly; Duration of Flow: 7 days; Number of Days of Heavy Flow: 7; Clots: yes; Cramps: yes; clots are massive Contraceptive Method:satisfied: (tubal ligation) Sexually Active:Yes: spouse STI Screen:declines Health/Prevention:Exer cise: yes; Tobacco Use: no; Safe at home: yes Mammogram:not applicable Pap Smear +/- HPV Cotesting:due; 2018 or 2020 per pt Colonoscopy:not applicableNotes:Would like to discuss endometrial ablation/other options. Very heavy bleeding each month with her period, large clots and cramping as well. Worst week of her life. No other questions/concerns. leatha/joe.i delivered her first 10 years ago. since then she has another repeat and along with that a bilateral salpingectomy. her periods have gotten very heavy over the past 2 years where her period lasts 7 days but the first 2-3 days she is using a super tampon and changing it hourly. she has now become anemic and her PCP told her to take iron tablet to treat it but she wants to solve the problem. she did have 2 different IUDs but both became embedded into her uterus even though it was placed under ultrasound guidance. they both required surgery to remove. she refuses to try an iud again. she refuses to try hormonal contraceptive pills again due to mental health related changes Hereditary Cancer Risk AssessmentHPI.Risk The patient completed the familial health questionnaire. She is at high risk for a genetic cancer syndrome. Metastatic prostate cancer at any age? Yes Imported from [place] on 02/01/[address] [place] [address], [place], [address], [facility] - [facility] INSPECTOR [employer] INSTRUMENT 02/02/2024 11:45:58 03/07/2024 text/html Post-Op GYROSCOPE TECHNICIAN ([facility])Reported bypatient.Procedure Date:02/22/24 Surgical Procedure:exam under anesthesia yes; total hysterectomy: laparoscopic; salpingectomy: left, Postoperative Symptoms:no fever; no chills; no fatigue; no shortness of breath; no chest pain; no leg swelling; no nausea; no vomiting; no constipation; no diarrhea; no urinary urgency; no dysuria; no abdominal pain; no pelvic pain; no incisional pain; no incisional redness; no incisional drainage; incision(s) closed; no abnormal bleeding; no menopausal symptoms; no vaginal discharge; no back pain; no shoulder painNotes:03/07/24 - No complaints. Wondering when to go back to [facility]. ps/[place] [id number] [address] [facility],[address], [place], [address], [facility] - [facility] INS[employer] INSTRUMENT 03/08/2024 11:14:33 04/04/2024 text/html Post-Op GYROSCOPE TECHNICIAN ([facility])Reported bypatient.Procedure Date:02/22/24 Surgical Procedure:exam under anesthesia yes; total hysterectomy: laparoscopic; salpingectomy: left, Postoperative Symptoms:no fever; no chills; no fatigue; no shortness of breath; no chest pain; no leg swelling; no nausea; no vomiting; no constipation; no diarrhea; no urinary urgency; no dysuria; no abdominal pain; no pelvic pain; no incisional pain; no incisional redness; no incisional drainage; incision(s) closed; no abnormal bleeding; no menopausal symptoms; no vaginal discharge; no back pain; no shoulder painNotes:04/04/24 - No complaints/questions. ps/ma 03/07/24 - No complaints. Wondering when to go back to [employer] ps[place] [address] [facility],[address], [place], [address], [place] - [facility] [employer] [employer] INSTRUMENT 04/04/2024 18:04:12 03/06/2025 text/html Annual Premenopa usal ([facility])Reported bypatient.Patient Relationship To Practice:established patient Current Medical History:active medical problems ; no recent surgeries or hospitalizations Relevant Family History:no family history of breast cancer; no family history of ovarian cancer; no family history of uterine cancer; no family history of colon cancer; no family history of blood clots/DVT Menstrual History:Frequency of Menses: none Contraceptive Method:satisfied: hysterectomy Sexually Active:Yes: spouse STI Screen:desires Health/Prevention:Exer cise: yes; Multivitamins: no; Vitamin D: no; Adequate Calcium Intake: yes; Breast Self Exam: no; Seat Belt Use: yes; Tobacco Use: no; Urinary Incontinence: no Mammogram:not applicable Pap Smear +/- HPV Cotesting:not applicable Colonoscopy:not applicable Patient has:Primary Care Physician: yesNotes:No questions/concerns; Rafael[place] [address], [place], [address], [place] [facility] [employer]STR[employer] 03/07/2025 09:20:09 OBGyn Episode No OBEpisode recorded.
[2025-06-11 17:31] VITALS: BP 122/82; PULSE 69; RESP 18; TEMP 36.2; O2SAT 99; BMI 26.5
--- NOTE | 2025-06-11 17:56 | CRLHL7_ITS ---
For Patients: As a result of the Century Cures Act, medical imaging exams and procedure reports are released immediately into your electronic medical record. You may view this report before your referring provider. If you have questions, please contact your health care provider. INDICATION: Sudden headache, family history of brain aneurysm. TECHNIQUE: CTA head with contrast bolus tracking, 3D angiographic rendering using maximum intensity projection (MIP) and images permanently archived. FINDINGS: There is normal opacification of the intracranial vasculature. There is no large vessel occlusion. There is a slight ectasia of the right P1 segment. No saccular aneurysm is identified. IMPRESSION: No acute intracranial abnormality at CTA. Please note that all CT scans at this facility use dose modulation, iterative reconstruction, and/or weight-based dosing when appropriate to reduce radiation dose to as low as reasonably achievable. Dictated by Panchito Hughes MD @ 06/11/2025 8:37:47 PM (Electronically Signed)
--- NOTE | 2025-06-11 17:57 | CRLHL7_ITS ---
For Patients: As a result of the Century Cures Act, medical imaging exams and procedure reports are released immediately into your electronic medical record. You may view this report before your referring provider. If you have questions, please contact your health care provider. TECHNIQUE: Multiplanar CT examination of the head was performed without the use of intravenous contrast. INDICATION: Headache. Family history of intracranial aneurysms. COMPARISON: None. FINDINGS: No loss of bernabe-white differentiation to suggest recent territorial infarct. No intracranial hemorrhage, abnormal extra-axial fluid collection, hydrocephalus or midline shift. The ventricles and cerebral sulci are normal in caliber. The basal cisterns are patent. The paranasal sinuses and mastoid air cells remain clear. The orbits and calvarium are unremarkable. The cerebellar tonsils are normal position. IMPRESSION: No acute intracranial findings. Please note that all CT scans at this facility use dose modulation, iterative reconstruction, and/or weight-based dosing when appropriate to reduce radiation dose to as low as reasonably achievable. Dictated by Marc Tilley MD @ 06/11/2025 7:17:49 PM (Electronically Signed)
--- NOTE | 2025-06-11 17:58 | ED_ITS ---
HPI - Headache General Chief Complaint: Headache/Migraine Stated Complaint: Sharp pain in head moving toward back Time Seen by Provider: 06/11/25 17:29 History of Present Illness HPI Narrative: This 30-year-old female comes in reporting a sudden onset of severe headache. This occurred while she was exercising. She states that she exercises every day and does not normally have any headaches. She has some nausea and sensitivity to light. She does not have any neurologic deficits. She states that the headache came on suddenly and was severe. She reports her father having a ruptured aneurysm which causes stroke. Related Data Home Medications ?Medication ?Instructions ?Recorded ?Confirmed No Known Home Medications 02/08/2301/21 Allergies Allergy/AdvReac Type Severity Reaction Status Date / Time No Known Drug Allergies Allergy Verified 06/11/25 18:32 Review of Systems Status of ROS: Reports: 10 or more systems reviewed and unremarkable except as noted in History and below Narrative: Constitutional: No fevers, no weight gain or loss. Eyes: No discharge. No vision changes. HENT: No congestion, no sore throat, no ear pain. Cardiovascular: No chest pain, no palpitations. Respiratory: No shortness of breath, no wheezes, no cough. Gastrointestinal: No abdominal pain, no vomiting, no diarrhea. Genitourinary: No dysuria, no hematuria. Musculoskeletal: Normal range of motion. Skin: No rashes, no pruritis. Neurological: No dizziness, weakness, sensory change, speech change. Endo/Heme/Allergies: No bruising or bleeding. No polydipsia. Pysch: no suicidality, no anxiety, no insomnia. All other systems reviewed and are negative. PFSH PFSH Social History Smoking Status: Former smoker Do you use any of these nicotine containing products: None Second hand tobacco smoke exposure: No How often do you have a drink containing alcohol: 2-4 times a month How many standard drinks containing alcohol do you have on a typical day: 3 or 4 How often do you have six or more drinks on one occasion: Never AUDIT-C Alcohol total score: 3 Non-prescribed substance use: former substance user Exam Narrative: Exam Narrative: Constitutional: Well-developed, well-nourished, no acute distress. HEENT: Normocephalic, atraumatic. Neck: Normal range of motion. Nontender. Supple. Heart: Regular. No murmurs. Normal rate. Intact distal pulses. Lungs: Clear to auscultation. No chest discomfort. No wheezes, rhonchi, or rales. Abdomen: Normal bowel sounds. Nontender. No rebound tenderness. Genitalia: Deferred. Back: No midline tenderness. Normal range of motion. Extremities: Normal range of motion. No injury. Skin: Intact. No rash. Warm. No erythema or pallor. Neurologic: No altered sensation. No weakness. Alert and oriented. Psychiatric: No suicidality. No anxiety or depression. No insomnia. Nursing notes and vitals signs are reviewed. Const: Vital Signs, click to edit/add: Vital Signs - 24 hr 06/11/25 17:31 06/11/25 20:13 Temperature 97.2 F L Pulse Rate 60 Pulse Rate [Pulse Oximeter] 69 Respiratory Rate 18 16 Blood Pressure 112/79 Blood Pressure [Ri ght Upper Arm] 122/82 Pulse Oximetry 99 100 Oxygen Delivery Me thod Room Air Room Air Course Vital Signs Vital signs: Initial Vital Signs Temperature 97.2 F L 06/11/25 17:31 Temperature Source Temporal Artery Scan 06/11/25 17:31 Pulse Rate 69 06/11/25 17:31 Respiratory Rate 18 06/11/25 17:31 Blood Pressure 122/82 06/11/25 17:31 Blood Pressure Mean 95 06/11/25 17:31 Pulse Oximetry 99 06/11/25 17:31 Oxygen Delivery Method Room Air 06/11/25 17:31 Vital Signs Temperature 97.2 F L 06/11/25 17:31 Pulse Rate 69 06/11/25 17:31 Respiratory Rate 18 06/11/25 17:31 Blood Pressure 122/82 06/11/25 17:31 Pulse Oximetry 99 06/11/25 17:31 Oxygen Delivery Method Room Air 06/11/25 17:31 Temperature 97.2 F L 06/11/25 17:31 Pulse Rate 60 06/11/25 20:13 Respiratory Rate 16 06/11/25 20:13 Blood Pressure 112/79 06/11/25 20:13 Pulse Oximetry 100 06/11/25 20:13 Oxygen Delivery Method Room Air 06/11/25 20:13 Medications Administered Medications: Discontinued Medications Generic Name Dose Route Start Last Admin Trade Name Freq PRN Reason Stop Dose Admin Acetaminophen 1,000 mg 06/11/25 17:57 06/11/25 18:16 Acetaminophen 500 Mg Tablet PO 06/11/25 17:58 1,000 mg ONCE ONE Administration Ondansetron HCl 4 mg 06/11/25 17:57 06/11/25 18:16 Ondansetron 2 Mg/Ml Inj IVP 06/11/25 17:58 4 mg ONCE ONE Administration MDM - Headache MDM Narrative Medical decision making narrative: This patient comes in with rather sudden onset of severe headache as described above. She reports a family history of an aneurysm in her father. I did then obtain CT of her head and CT angio also. These returned with normal results. The patient did receive an oral dose of Tylenol and an IV dose of Zofran. She states that she is feeling better. She is very much reassured with the imaging results. She feels okay to return home. Imaging Data CT scan - head: Radiologist's impression: No acute intracranial findings. Discharge Plan Discharge Clinical Impression: Migraine Patient Disposition: Home, Self-Care Condition: Improved Additional Instructions: Continue current plans. Use [id number] medicines as needed and directed. Follow up with MD return if worsening. Prescriptions: No Action No Known Home Medications Follow Up/Referrals: Provider,Not a Local [Primary Care Provider, Family Practice] Stand Alone Forms: [employer] Info Instructions
[2025-06-11] MEDS: ONDANSETRON 2 MG/ML inj 4 MG IVP (18:16)
[2025-06-11] MEDS: ACETAMINOPHEN 500 MG TABLET 1000 MG PO (18:16)
[2025-06-11 20:13] VITALS: BP 112/79; PULSE 60; RESP 16; O2SAT 100
== END 2025-06-11 20:46 | disposition home or self-care (01) ==
PROVIDERS: Emergency Provider Emergency Medicine Emergency Medical Services
DX: G43.909 Migraine, unspecified, not intractable, without status migrainosus (principal)
CPT/HCPCS: 70450; 70496; 96374; 99284; A9270; J2405; Q9967